=== PATIENT | female | born 1990 ===

== ENCOUNTER 2019-06-27 23:27 | Inpatient (IN) | payer BC ==
[2019-06-28] MEDS ORDERED: Tranexamic Acid 1,000 MG in Sodium Chloride 0.9% 100 ML IV PRN (00:38)
[2019-06-28] MEDS ORDERED: Carboprost Tromethamine 250 MCG/1 ML Amp IM PRN (00:38)
[2019-06-28] MEDS ORDERED: Sodium Chloride 0.9% 10 ML SDV IV PRN (00:38)
[2019-06-28] MEDS ORDERED: Misoprostol 200 MCG Tab PO PRN (00:38)
[2019-06-28] MEDS ORDERED: Sodium Chloride 0.9% 10 ML Syringe FLUSH PRN (00:38)
[2019-06-28] MEDS ORDERED: Nalbuphine 10 MG/1 ML Vial IVPUSH PRN (00:38)
[2019-06-28] MEDS ORDERED: Lidocaine 1% 50 ML MDV INJECT PRN (00:38)
[2019-06-28] MEDS ORDERED: Water For Irrigation,Sterile 1,000 ML Container IRR PRN (00:38)
[2019-06-28] MEDS ORDERED: Butorphanol 1 MG/ML SDV IVPUSH PRN (00:38)
[2019-06-28] MEDS ORDERED: Methylergonovine 0.2 MG/1 ML Amp IM PRN (00:38)
[2019-06-28] MEDS ORDERED: Lactated Ringers 1,000 ML IV SCH (00:45)
[2019-06-28] MEDS ORDERED: Oxytocin/0.9 % Sodium Chloride 30 UNIT/500 ML BAG IV SCH ×2 (00:45→04:30)
[2019-06-28] MEDS ORDERED: Terbutaline 1 MG/ML SDV SUBCUT PRN (04:25)
--- NOTE | 2019-06-28 08:41 | PCM.DEL ---
L & D Note - General Info Date of Service: 06/28/19 Mother's Due Date: 07/09/19 - Delivery Note Labor: Spontaneous Delivery Outcome: Livebirth Infant Delivery Method: Spontaneous Vaginal Delivery-Single Presentation: Left Occiput Anterior (SKINNY) Nuchal Cord: Present Anesthesia Type: None Amniotic Fluid Description: Clear Episiotomy Type: None Laceration: None Placenta: Intact Cord: 3 Vessels Estimated Blood Loss: 100 Resuscitation Needed: No Score 1 min: 8 Score 5 min: 9 Delivery Comments (Free Text/Narrative):: Live Male delivered at 744am , 8/9 , weight pending - General Info Date of Service: 06/28/19 - Patient Data Weight - Most Recent: 75.296 kg Lab Results Last 24 Hours: Laboratory Results - last 24 hr 06/28/19 06/28/19 Range/Units 00:53 00:53 WBC 15.46 H (4.0-11.0) K/uL RBC 3.87 L (4.30-5.90) M/uL Hgb 12.7 (12.0-16.0) g/dL Hct 36.6 (36.0-46.0) % MCV 94.6 (80.0-98.0) fL MCH 32.8 H (27.0-32.0) pg MCHC 34.7 (31.0-37.0) g/dL RDW Std Deviation 39.9 (28.0-62.0) fl RDW Coeff of Alfred 12 (11.0-15.0) % Plt Count 222 (150-400) K/uL MPV 10.30 (7.40-12.00) fL Blood Type O POSITIVE Antibody Screen NEGATIVE Med Orders - Current: Current Medications Butorphanol Tartrate (Stadol) 1 mg IVPUSH ASDIRECTED PRN PRN Reason: Pain Carboprost Tromethamine (Hemabate Ds) 250 mcg IM ASDIRECTED PRN PRN Reason: Post Hemorrhage Lactated Ringer's (Ringers, Lactated) 1,000 mls @ 150 mls/hr IV ASDIRECTED JENNY Last Admin: 06/28/19 04:40 Dose: 150 mls/hr Oxytocin/Sodium Chloride (Oxytocin 30 Unit/500 Ml-Ns) 30 unit in 500 mls @ 999 mls/hr IV TITRATE JENNY Last Admin: 06/28/19 07:54 Dose: 500 mls/hr Tranexamic Acid 1,000 mg/ (Sodium Chloride) 110 mls @ 660 mls/hr IV ONETIME PRN PRN Reason: Bleeding Oxytocin/Sodium Chloride (Oxytocin 30 Unit/500 Ml-Ns) 30 unit in 500 mls @ 2 mls/hr IV TITRATE JENNY; Protocol Lidocaine HCl (Xylocaine 1%) 50 ml INJECT ONETIME PRN PRN Reason: Laceration repair Methylergonovine Maleate (Methergine) 0.2 mg IM ASDIRECTED PRN PRN Reason: Post Hemorrhage Misoprostol (Cytotec) 200 mcg PO ONETIME PRN PRN Reason: Post Hemorrhage Nalbuphine HCl (Nubain) 10 mg IVPUSH ASDIRECTED PRN PRN Reason: Pain (severe 7-10) Sodium Chloride (Saline Flush) 10 ml FLUSH ASDIRECTED PRN PRN Reason: Keep Vein Open Sodium Chloride (Normal Saline) 10 ml IV ASDIRECTED PRN PRN Reason: IV Use Sterile Water (Sterile Water For Irrigation) 1,000 ml IRR ASDIRECTED PRN PRN Reason: delivery Last Admin: 06/28/19 07:54 Dose: 1,000 ml Terbutaline Sulfate (Brethine) 0.25 mg SUBCUT ASDIRECTED PRN PRN Reason: Tacysystole - Problem List & Annotations (1) Vaginal delivery SNOMED Code(s): 871405030 Code(s): O80 - ENCOUNTER FOR FULL-TERM UNCOMPLICATED DELIVERY Status: Acute Current Visit: No - Problem List Review Problem List Initiated/Reviewed/Updated: Yes - My Orders Last 24 Hours: My Active Orders 06/28/19 00:38 Patient Status [ADT] Routine Heart Tones [RC] CONTINUOUS Non Stress Test [RC] PER UNIT ROUTINE May Shower [RC] ASDIRECTED Notify Provider [RC] PRN Up ad Rosalia [RC] ASDIRECTED Vaginal Exam [RC] PRN Vital Signs [RC] PER UNIT ROUTINE Butorphanol [Stadol] 1 mg IVPUSH ASDIRECTED PRN Carboprost Tromethamine [Hemabate DS] 250 mcg IM ASDIRECTED PRN Lidocaine 1% [Xylocaine 1%] 50 ml INJECT ONETIME PRN Methylergonovine [Methergine] 0.2 mg IM ASDIRECTED PRN Nalbuphine [Nubain] 10 mg IVPUSH ASDIRECTED PRN Sodium Chloride 0.9% [Normal Saline] 10 ml IV ASDIRECTED PRN Sodium Chloride 0.9% [Saline Flush] 10 ml FLUSH ASDIRECTED PRN Tranexamic Acid [Cyklokapron] 1,000 mg Sodium Chloride 0.9% [Normal Saline] 100 ml IV ONETIME Water For Irrigation,Sterile [Sterile Water for Irrigation] 1,000 ml IRR ASDIRECTED PRN miSOPROStol [Cytotec] 200 mcg PO ONETIME PRN Scalp Electrode [WOMSER] Per Unit Routine Peripheral IV Insertion Adult [OM.PC] Routine Resuscitation Status Routine 06/28/19 00:45 Lactated Ringers [Ringers, Lactated] 1,000 ml IV ASDIRECTED Oxytocin/0.9 % Sodium Chloride [Oxytocin 30 Unit/500 ML-NS] 30 unit in 500 ml IV TITRATE 06/28/19 04:25 Bedrest Bathroom Privileges [RC] ASDIRECTED Communication Order [RC] ASDIRECTED Communication Order [RC] ASDIRECTED Notify Provider [RC] PRN Notify Provider [RC] STAT Oxygen Therapy [RC] ASDIRECTED Vaginal Exam [RC] PRN Vital Signs [RC] PER UNIT ROUTINE Terbutaline [Brethine] 0.25 mg SUBCUT ASDIRECTED PRN 06/28/19 04:30 Oxytocin/0.9 % Sodium Chloride [Oxytocin 30 Unit/500 ML-NS] 30 unit in 500 ml IV TITRATE Medication Administration Instruction [OM.PC] Q3H
[2019-06-28] MEDS ORDERED: Benzocaine/Menthol 20%-0.5% Spray 78 GM Cannister ONE (10:47)
[2019-06-28] MEDS ORDERED: Ibuprofen 800 MG Tab ONE (13:32)
[2019-06-28] MEDS ORDERED: oxyCODONE 5 MG Tab PO PRN (13:34)
[2019-06-28] MEDS ORDERED: Docusate Sodium 100 MG Cap PO PRN (13:34)
[2019-06-28] MEDS ORDERED: Lanolin 100% Cream 7 GM Tube TOP PRN (13:34)
[2019-06-28] MEDS ORDERED: Benzocaine/Menthol 20%-0.5% Spray 78 GM Cannister TOP PRN (13:34)
[2019-06-28] MEDS ORDERED: Ibuprofen 800 MG Tab PO PRN (13:34)
[2019-06-28] MEDS ORDERED: Ibuprofen 400 MG Tab PO PRN (13:34)
[2019-06-28] MEDS ORDERED: Witch Hazel Medicated Pads 40/Jar TOP PRN (13:34)
[2019-06-28] MEDS ORDERED: Acetaminophen 500 MG Tab PO PRN ×2 (13:34)
[2019-06-28] MEDS ORDERED: Bisacodyl 10 MG Supp RECTAL PRN (13:34)
--- NOTE | 2019-06-28 15:26 | OR ---
SURGEON: JAVY RICHTER DATE OF PROCEDURE:06/28/2019 PREOPERATIVE DIAGNOSIS: A 29-year-old, G2, P 1-0-0-1, at 38 weeks and 3 days, admitted in early labor. POSTOPERATIVE DIAGNOSIS: A 29-year-old, G2, P 1-0-0-1, at 38 weeks and 3 days, admitted in early labor. PROCEDURE: Normal spontaneous vaginal delivery. ESTIMATED BLOOD LOSS: 100 mL. ANESTHESIA: None. IV FLUIDS: Pitocin running. FINDINGS: Notable finding was a live male delivered at 7:44am. scores 8 and 9. Weight is 7pounds 0oz. Normal intact perineum. BRIEF HISTORY: She is a 29-year-old, G2, P 1-0-0-1, at 38 weeks and 3 days, who came in complaining of leakage of fluid. She was having slight contractions. Then she was allowed to progress and she made change and she became 3 cm. From then, she became fully dilated. The patient was encouraged to push when she was fully dilated. DESCRIPTION OF PROCEDURE: The patient being fully dilated, she delivered the head, followed subsequently by the anterior and posterior shoulder. The body of the infant was delivered. was placed on the maternal abdomen. Cord was clamped after delayed cord clamping. The cord was cut also. The placenta was then delivered via controlled cord traction after signs of separation of the placenta was noted. The uterus was massaged and minimal bleeding was noted. The perineum was inspected, noted to be intact. All instrument and pad counts were correct x2. The patient tolerated the procedure well and left the Labor and Delivery room in stable condition. SUZANNE MULLINS /[id number] STACEY
[2019-06-29 07:58] VITALS: BP 100/60; PULSE 58
--- NOTE | 2019-06-29 09:30 | PCM.PNPP ---
- General Info Date of Service: 06/29/19 Functional Status: Reports: Pain Controlled - Review of Systems General: Reports: No Symptoms. Denies: Fever, Chills HEENT: Reports: No Symptoms Pulmonary: Reports: No Symptoms. Denies: Shortness of Breath Cardiovascular: Reports: No Symptoms. Denies: Chest Pain, Palpitations Gastrointestinal: Reports: No Symptoms, Abdominal Pain (mild cramping) Genitourinary: Reports: No Symptoms Musculoskeletal: Reports: No Symptoms Skin: Reports: No Symptoms Neurological: Reports: No Symptoms. Denies: Headache Psychiatric: Reports: No Symptoms - General Info Date of Service: 06/29/19 - Patient Data Vital Signs - Most Recent: Last Vital Signs Temp 98.1 F 06/29/19 07:56 Pulse 58 L 06/29/19 07:56 Resp 16 06/29/19 07:56 BP 100/60 06/29/19 07:56 Pulse Ox 98 06/29/19 07:56 Weight - Most Recent: 166 lb Lab Results - Last 24 Hours: Laboratory Results - last 24 hr 06/29/19 Range/Units 05:25 Hgb 11.3 L (12.0-16.0) g/dL Hct 34.0 L (36.0-46.0) % Med Orders - Current: Current Medications Acetaminophen (Tylenol Extra Strength) 500 mg PO Q4H PRN PRN Reason: Pain Acetaminophen (Tylenol Extra Strength) 1,000 mg PO Q4H PRN PRN Reason: Pain Benzocaine/Menthol (Dermoplast Pain Relief 20%-0.5% [place]) 78 gm TOP ASDIRECTED PRN PRN Reason: Perineal Comfort Measure Bisacodyl (Dulcolax) 10 mg RECTAL ONETIME PRN PRN Reason: Constipation Butorphanol Tartrate (Stadol) 1 mg IVPUSH ASDIRECTED PRN PRN Reason: Pain Carboprost Tromethamine (Hemabate Ds) 250 mcg IM ASDIRECTED PRN PRN Reason: Post Hemorrhage Docusate Sodium (Colace) 100 mg PO BID PRN PRN Reason: Constipation Emollient Ointment (Lansinoh Hpa) 0 gm TOP ASDIRECTED PRN PRN Reason: Sore Nipples Lactated Ringer's (Ringers, Lactated) 1,000 mls @ 150 mls/hr IV ASDIRECTED JENNY Last Admin: 06/28/19 04:40 Dose: 150 mls/hr Oxytocin/Sodium Chloride (Oxytocin 30 Unit/500 Ml-Ns) 30 unit in 500 mls @ 999 mls/hr IV TITRATE [facility] Last Admin: 06/28/19 07:54 Dose: 500 mls/hr Tranexamic Acid 1,000 mg/ (Sodium Chloride) 110 mls @ 660 mls/hr IV ONETIME PRN PRN Reason: Bleeding Oxytocin/Sodium Chloride (Oxytocin 30 Unit/500 Ml-Ns) 30 unit in 500 mls @ 2 mls/hr IV TITRATE [facility]; Protocol Ibuprofen (Motrin) 400 mg PO Q4H PRN PRN Reason: Pain Ibuprofen (Motrin) 800 mg PO Q6H PRN PRN Reason: Pain Last Admin: 06/28/19 20:13 Dose: 800 mg Lidocaine HCl (Xylocaine 1%) 50 ml INJECT ONETIME PRN PRN Reason: Laceration repair Methylergonovine Maleate (Methergine) 0.2 mg IM ASDIRECTED PRN PRN Reason: Post Hemorrhage Misoprostol (Cytotec) 200 mcg PO ONETIME PRN PRN Reason: Post Hemorrhage Nalbuphine HCl (Nubain) 10 mg IVPUSH ASDIRECTED PRN PRN Reason: Pain (severe 7-10) Oxycodone HCl (Oxycodone) 5 mg PO Q2H PRN PRN Reason: Pain Sodium Chloride (Saline Flush) 10 ml FLUSH ASDIRECTED PRN PRN Reason: Keep Vein Open Sodium Chloride (Normal Saline) 10 ml IV ASDIRECTED PRN PRN Reason: IV Use Sterile Water (Sterile Water For Irrigation) 1,000 ml IRR ASDIRECTED PRN PRN Reason: delivery Last Admin: 06/28/19 07:54 Dose: 1,000 ml Terbutaline Sulfate (Brethine) 0.25 mg SUBCUT ASDIRECTED PRN PRN Reason: Tacysystole Witch Kiarra (Tucks) 1 pad TOP ASDIRECTED PRN PRN Reason: comfort care Discontinued Medications Benzocaine/Menthol (Dermoplast Pain Relief 20%-0.5% [place]) Confirm Administered Dose 78 gm .ROUTE .STK-MED ONE Stop: 06/28/19 10:48 Ibuprofen (Motrin) Confirm Administered Dose 800 mg .ROUTE .STK-MED ONE Stop: 06/28/19 13:33 Last Admin: 06/28/19 13:37 Dose: 800 mg - Infant Interaction Disposition, : in Room with Family Interaction: Holding Infant Feeding: Attempted ; Nursed Fair/Poor Support Person: - Recovery Exam Fundal Tone: Firm Fundal Level: 2 Fingerbreadths Below Umbilicus Fundal Placement: Midline Lochia Amount: Scant Lochia Color: Rubra/Red Perineum Description: Other (see below) (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) Bladder Status: Voiding - Exam General: Alert, Oriented HEENT: Pupils Equal Neck: Supple Lungs: Clear to Auscultation, Normal Respiratory Effort Cardiovascular: Regular Rate, Regular Rhythm GI/Abdominal Exam: Normal Bowel Sounds, Soft, Non-Tender, No Organomegaly, No Distention, No Abnormal Bruit, No Mass, Pelvis Stable Extremities: Normal Inspection, Normal Range of Motion, Non-Tender, No Pedal Edema, Normal Capillary Refill Skin: Warm, Dry, Intact Neurological: No New Focal Deficit Psy/Mental Status: Alert, Normal Affect, Normal Mood - Problem List Review Problem List Initiated/Reviewed/Updated: Yes - Assessment Assessment:: 29yo PPD1, s/p Stable Normal Lochia well - Plan Plan:: Regular diet Ambulate PRN Pain control PRN Routine care Possible discharge to home today
== END 2019-06-29 11:15 | disposition home or self-care (01) | DRG 560 ==
LOC: MW.OBCHECK 23:27 → MW.OB 23:36 → MW.OBCHECK 06-28 00:38 → MW.OB 06-28 00:38 → OBSVTOIN 06-28 07:44 → MW.OB 06-28 19:00
PROVIDERS: ADMIT Obstetrics & Gynecology; ATTEND Obstetrics & Gynecology
PROC: 10E0XZZ Delivery of Products of Conception, External Approach (ICD-10-PCS; principal; 2019-06-28)
PROC: 3E033VJ Introduction of Other Hormone into Peripheral Vein, Percutaneous Approach (ICD-10-PCS; 2019-06-28)
PROC: 4A1HXCZ Monitoring of Products of Conception, Cardiac Rate, External Approach (ICD-10-PCS; 2019-06-28)
DX: O69.81X0 Labor and delivery complicated by cord around neck, without compression, not applicable or unspecified (principal); O42.92 Full-term premature rupture of membranes, unspecified as to length of time between rupture and onset of labor; Z3A.38 38 weeks gestation of pregnancy; Z37.0 Single live birth
CPT/HCPCS: 36415; 59025; 59409; 85014; 85018; 85027; 86850; 86900; 86901; A9270-GY; J2590; J7120

== ENCOUNTER 2023-01-21 08:41 | Inpatient (IN) | payer BC ==
[2023-01-21] MEDS ORDERED: Terbutaline 1 MG/ML SDV SUBCUT PRN (10:26)
[2023-01-21] MEDS ORDERED: Sodium Chloride 0.9% 10 ML Syringe FLUSH PRN (10:26)
[2023-01-21] MEDS ORDERED: Methylergonovine 0.2 MG/1 ML Amp IM PRN (10:26)
[2023-01-21] MEDS ORDERED: Misoprostol 200 MCG Tab PO PRN (10:26)
[2023-01-21] MEDS ORDERED: Water For Irrigation,Sterile 1,000 ML Container IRR PRN (10:26)
[2023-01-21] MEDS ORDERED: Carboprost Tromethamine 250 MCG/1 ML Amp IM PRN (10:26)
[2023-01-21] MEDS ORDERED: Tranexamic Acid 1,000 MG in Sodium Chloride 0.9% 100 ML IV PRN (10:26)
[2023-01-21] MEDS ORDERED: Butorphanol 1 MG/ML SDV IVPUSH PRN (10:26)
[2023-01-21] MEDS ORDERED: Lidocaine 1% 50 ML MDV INJECT PRN (10:26)
[2023-01-21] MEDS ORDERED: Sodium Chloride 0.9% 20 ML SDV IV PRN (10:26)
[2023-01-21] MEDS ORDERED: Sodium Chloride 0.9% 2.5 ML Syringe FLUSH PRN (10:26)
[2023-01-21] MEDS ORDERED: Lactated Ringers 1,000 ML IV SCH (10:30)
[2023-01-21] MEDS ORDERED: Oxytocin/0.9 % Sodium Chloride 30 UNIT/500 ML BAG IV SCH ×2 (10:30)
[2023-01-21] MEDS ORDERED: oxyCODONE 5 MG Tab PO PRN (16:36)
[2023-01-21] MEDS ORDERED: Docusate Sodium 100 MG Cap PO PRN (16:36)
[2023-01-21] MEDS ORDERED: Benzocaine/Menthol 20%-0.5% Spray 78 GM Cannister TOP PRN (16:36)
[2023-01-21] MEDS ORDERED: Bisacodyl 10 MG Supp RECTAL PRN (16:36)
[2023-01-21] MEDS ORDERED: Witch Hazel Medicated Pads 40/Jar TOP PRN (16:36)
[2023-01-21] MEDS ORDERED: Lanolin 100% Cream 7 GM Tube TOP PRN (16:36)
[2023-01-21] MEDS ORDERED: Acetaminophen 500 MG Tab PO PRN ×2 (16:36)
[2023-01-21] MEDS ORDERED: Ibuprofen 400 MG Tab PO PRN (16:36)
[2023-01-21] MEDS: Ibuprofen 800 MG Tab PO PRN (20:52)
[2023-01-22] MEDS: Ibuprofen 800 MG Tab PO PRN (09:40)
[2023-01-22 17:43] VITALS: BP 114/70; PULSE 68
== END 2023-01-22 18:00 | disposition home or self-care (01) | DRG 560 ==
LOC: MW.OB 08:41 → MW.OBCHECK 08:41 → MW.OB 08:43 → OBSVTOIN 16:36 → MW.OB 19:36
PROVIDERS: ADMIT Obstetrics & Gynecology; ATTEND Obstetrics & Gynecology
PROC: 10E0XZZ Delivery of Products of Conception, External Approach (ICD-10-PCS; principal; 2023-01-21)
DX: O48.0 Post-term pregnancy (principal); Z37.0 Single live birth; O98.52 Other viral diseases complicating childbirth; U07.1 COVID-19; O99.02 Anemia complicating childbirth; D64.9 Anemia, unspecified; Z3A.41 41 weeks gestation of pregnancy
CPT/HCPCS: 36415; 59025; 59409; 82803; 85014; 85018; 85027; 86592; 86850; 86900; 86901; A9270-GY; J2590; J7120; U0002